=== PATIENT | female | born 1995 ===

== ENCOUNTER 2019-05-13 06:18 | Emergency (ER) | payer OTHER ==
[~2019-05-13] VITALS: Ht 170.2 cm; Wt 93.0 kg
== END 2019-05-13 18:03 | disposition home or self-care (01) ==
LOC: ER 06:18 → EDBD 06:22 → ER 18:03
DX: R10.32 Left lower quadrant pain (principal)

== ENCOUNTER 2021-03-22 08:16 | Emergency (ER) | payer OTHER ==
[~2021-03-22] VITALS: Ht 167.6 cm; Wt 78.5 kg
[2021-03-22] MEDS ORDERED: INTESTINEX680 M1 PO (16:01)
[2021-03-22] MEDS ORDERED: FLAGYL500MG PO (16:01)
[2021-03-22] MEDS ORDERED: PEPCID AC20 MG PO (16:01)
[2021-03-22] MEDS ORDERED: CIPRO500 MG PO (16:01)
== END 2021-03-22 17:43 | disposition home or self-care (01) ==
LOC: ER 08:16
DX: K52.9 Noninfective gastroenteritis and colitis, unspecified (principal)